=== PATIENT | male | born 1950 | race Caucasian/White ===

== ENCOUNTER 2019-05-08 07:00 | Inpatient (IN) | payer SELFPAY ==
[~2019-05-08] VITALS: Ht 182.9 cm; Wt 68.5 kg
--- NOTE | 2019-05-08 07:18 | NUR ---
pt to room from [facility], changed into gown & upright on gurney awake & comfortable, responds approp to staff, NAD, comfort measures provided, call light within reach. ERP at BS
[2019-05-08] MEDS ORDERED: ASPI-496 PO (07:23)
[2019-05-08] MEDS ORDERED: ASPIRIN 325 MG TABLET PO ONE (07:30)
[2019-05-08 07:48] LABS: BASOPHILS # (AUTO) 0.03 x10^3/uL (0-0.1); BASOPHILS % (AUTO) 1 % (0-1); EOSINOPHILS # (AUTO) 0.16 x10^3/uL (0-0.4); EOSINOPHILS % (AUTO) 3 % (1-7); LYMPHOCYTES # (AUTO) 2.33 x10^3/uL (1-3.4); LYMPHOCYTES % (AUTO) 36 % (22-44); MD NO; MEAN CORPUSCULAR HEMOGLOBIN 32.1 pg (27.5-34.5); MEAN CORPUSCULAR HGB CONC 33.3 g/dL (33.2-36.2); MEAN CORPUSCULAR VOLUME 96.4 fL (81-97); MEAN PLATELET VOLUME 9.7 fL (7.4-10.4); MONOCYTES # (AUTO) 0.66 x10^3/uL (0.2-0.8); MONOCYTES % (AUTO) 10 % (2-9); NEUTROPHILS # (AUTO) 3.28 x10^3/uL (1.8-6.8); NEUTROPHILS % (AUTO) 51 % (42-75); PLATELET COUNT 191 x10^3/uL (130-400); RED BLOOD COUNT 5.28 x10^6/uL (4.38-5.82); RED CELL DISTRIBUTION WIDTH 13.2 % (9.4-14.8)
--- NOTE | 2019-05-08 07:59 | NUR ---
pt remains upright on gurney awake & comfortable, responds approp to staff, NAD, comfort measures provided, call light within reach.
[2019-05-08 08:02] LABS: ALBUMIN 4.2 g/dL (3.4-5.0); ANION GAP 6 mmol/L (5-15); CALCIUM 9.1 mg/dL (8.5-10.1); CHLORIDE 110 mmol/L (98-107); CREATININE 1.07 mg/dL (0.7-1.3)
[2019-05-08 08:05] LABS: TROPONIN I < 0.015 ng/mL (0.000-0.045)
[2019-05-08 08:06] LABS: AMPHETAMINE SCREEN, URINE Negative (Negative); CANNABINOID SCREEN, URINE Positive (Negative); COCAINE SCREEN, URINE Negative (Negative); METHADONE SCREEN, URINE Negative (Negative)
[2019-05-08 08:07] LABS: BARBITURATE SCREEN, URINE Negative (Negative); BENZODIAZEPINE SCREEN, URINE Negative (Negative); OPIATE SCREEN, URINE Negative (Negative)
--- NOTE | 2019-05-08 08:16 | NUR ---
pt to CT
[2019-05-08] MEDS ORDERED: ASPIRIN 325 MG TABLET ONE (08:18)
[2019-05-08] MEDS ORDERED: OMNIPAQUE 350 MG/ML, 100ML BOTTLE ONE (08:49)
--- NOTE | 2019-05-08 09:03 | NUR ---
pt upright on gurney awake & comfortable, responds approp to staff, NAD, comfort measures provided, call light within reach.
--- NOTE | 2019-05-08 09:49 | NUR ---
Pt to be admitted to [facility], room 488-2. Report called to Inez.
--- NOTE | 2019-05-08 09:56 | NUR ---
pt remains upright on gurney awake & comfortable, responds approp to staff, NAD, comfort measures provided, call light within reach.
[2019-05-08 10:23] VITALS: BP 156/87
[2019-05-08] MEDS ORDERED: ONDANSETRON ODT 4 MG PO PRN (12:00)
[2019-05-08] MEDS ORDERED: TRAZODONE 50MG TABLET PO PRN (12:00)
[2019-05-08] MEDS ORDERED: DOCUSATE 100 MG CAPSULE PO PRN (12:00)
[2019-05-08] MEDS ORDERED: ONDANSETRON 2MG/ML, 2ML IVPush PRN (12:00)
[2019-05-08] MEDS ORDERED: hydrALAzine 20 MG/ML, 1ML IVPush PRN (12:00)
[2019-05-08] MEDS ORDERED: ACETAMINOPHEN 325 MG TABLET PO PRN (12:00)
[2019-05-08] MEDS ORDERED: BISACODYL 10 MG SUPP PR PRN (12:00)
[2019-05-08 12:37] LABS: FREE T4 (FREE THYROXINE) 1.13 ng/dL (0.76-1.46); THYROID STIMULATING HORMONE 2.76 mIU/L (0.358-3.740)
[2019-05-08 12:56] LABS: HEMOGLOBIN A1C 5.8 % (4.2-6.3)
[2019-05-08 13:32] VITALS: BP 122/76
[2019-05-08] MEDS: ENOXAPARIN 40 MG/0.4 ML SQ SCH (16:01)
[2019-05-08] MEDS: CAPTOPRIL 12.5 MG TABLET PO SCH ×2 (16:01→23:26)
[2019-05-08 16:15] LABS: MICROSCOPIC NOT IND
[2019-05-08 16:20] LABS: CULTURE INDICATED? NO
[2019-05-08 19:07] VITALS: BP 108/70
[2019-05-08] MEDS: ATORVASTATIN 40 MG TABLET PO SCH (21:06)
[2019-05-08] MEDS: FAMOTIDINE 20 MG TABLET PO SCH (21:06)
[2019-05-08 23:25] VITALS: BP 142/90
[2019-05-09 02:16] VITALS: BP 108/69
[2019-05-09] MEDS: ASPIRIN 325 MG TABLET EC PO SCH (06:08)
[2019-05-09 06:54] LABS: BASOPHILS # (AUTO) 0.04 x10^3/uL (0-0.1); BASOPHILS % (AUTO) 1 % (0-1); EOSINOPHILS # (AUTO) 0.13 x10^3/uL (0-0.4); EOSINOPHILS % (AUTO) 2 % (1-7); LYMPHOCYTES # (AUTO) 1.83 x10^3/uL (1-3.4); LYMPHOCYTES % (AUTO) 29 % (22-44); MD NO; MEAN CORPUSCULAR HEMOGLOBIN 31.8 pg (27.5-34.5); MEAN CORPUSCULAR HGB CONC 33.1 g/dL (33.2-36.2); MEAN CORPUSCULAR VOLUME 96.1 fL (81-97); MEAN PLATELET VOLUME 10.2 fL (7.4-10.4); MONOCYTES % (AUTO) 11 % (2-9); NEUTROPHILS # (AUTO) 3.57 x10^3/uL (1.8-6.8); NEUTROPHILS % (AUTO) 57 % (42-75); PLATELET COUNT 190 x10^3/uL (130-400); RED BLOOD COUNT 5.29 x10^6/uL (4.38-5.82); RED CELL DISTRIBUTION WIDTH 12.8 % (9.4-14.8)
[2019-05-09 07:08] LABS: ANION GAP 6 mmol/L (5-15); CHLORIDE 110 mmol/L (98-107); CHOLESTEROL, TOTAL 230 mg/dL (140-239); TRIGLYCERIDES 118 mg/dL (50-200); VLDL CHOLESTEROL 24 mg/dL (0-25)
[2019-05-09 07:09] LABS: HDL CHOL % 20 % (26-37); HDL CHOLESTEROL (DIRECT) 46 mg/dL (40-60); LDL CHOLESTEROL,CALCULATED 160 mg/dL (54-169); LDL/HDL RATIO 3.5 (0.5-3.0)
[2019-05-09 08:02] VITALS: BP 135/79
[2019-05-09] MEDS: CAPTOPRIL 12.5 MG TABLET PO SCH ×2 (08:46→16:00)
[2019-05-09] MEDS: FAMOTIDINE 20 MG TABLET PO SCH ×2 (08:46→20:22)
[2019-05-09] MEDS ORDERED: GADOBUTROL 7.5 MMOL/7.5 ML PFS ONE (09:31)
[2019-05-09 13:38] VITALS: BP 127/71
[2019-05-09] MEDS: ENOXAPARIN 40 MG/0.4 ML SQ SCH (16:47)
[2019-05-09] MEDS: ATORVASTATIN 40 MG TABLET PO SCH (20:22)
[2019-05-09 20:27] VITALS: BP 106/66
[2019-05-10 03:14] VITALS: BP 126/74
[2019-05-10 05:17] LABS: BASOPHILS # (AUTO) 0.05 x10^3/uL (0-0.1); BASOPHILS % (AUTO) 1 % (0-1); EOSINOPHILS # (AUTO) 0.17 x10^3/uL (0-0.4); EOSINOPHILS % (AUTO) 3 % (1-7); LYMPHOCYTES # (AUTO) 2.25 x10^3/uL (1-3.4); LYMPHOCYTES % (AUTO) 32 % (22-44); MD NO; MEAN CORPUSCULAR HEMOGLOBIN 32.4 pg (27.5-34.5); MEAN CORPUSCULAR HGB CONC 33.2 g/dL (33.2-36.2); MEAN CORPUSCULAR VOLUME 97.7 fL (81-97); MEAN PLATELET VOLUME 10.5 fL (7.4-10.4); MONOCYTES # (AUTO) 0.94 x10^3/uL (0.2-0.8); MONOCYTES % (AUTO) 14 % (2-9); NEUTROPHILS # (AUTO) 3.57 x10^3/uL (1.8-6.8); NEUTROPHILS % (AUTO) 51 % (42-75); PLATELET COUNT 198 x10^3/uL (130-400); RED BLOOD COUNT 5.34 x10^6/uL (4.38-5.82); RED CELL DISTRIBUTION WIDTH 13.3 % (9.4-14.8)
[2019-05-10 05:27] LABS: ANION GAP 5 mmol/L (5-15); CALCIUM 9.3 mg/dL (8.5-10.1); CHLORIDE 109 mmol/L (98-107)
[2019-05-10 05:28] LABS: CREATININE 1.21 mg/dL (0.7-1.3)
[2019-05-10] MEDS: ASPIRIN 325 MG TABLET EC PO SCH (06:03)
[2019-05-10 07:00] VITALS: BP 105/68
[2019-05-10] MEDS: FAMOTIDINE 20 MG TABLET PO SCH (07:59)
[2019-05-10 14:00] VITALS: BP 124/76
[2019-05-10] MEDS: ENOXAPARIN 40 MG/0.4 ML SQ SCH (16:00)
[2019-05-10] MEDS ORDERED: ASPI-650 PO (16:29)
[2019-05-10] MEDS ORDERED: ATOR40TA78 PO (16:29)
== END 2019-05-10 18:50 | disposition home or self-care (01) | DRG 65 ==
LOC: ED 08:19 → EDIP 09:22 → INTOOBSV 09:22 → OBSVTOIN 09:46 → 4EST 10:21
PROVIDERS: ADMIT Internal Medicine; ATTEND Internal Medicine
DX: I63.512 Cerebral infarction due to unspecified occlusion or stenosis of left middle cerebral artery (principal); G81.91 Hemiplegia, unspecified affecting right dominant side; R13.10 Dysphagia, unspecified; R47.01 Aphasia; R29.810 Facial weakness; R47.81 Slurred speech; Z79.82 Long term (current) use of aspirin; Z85.51 Personal history of malignant neoplasm of bladder
CPT/HCPCS: 36415; 70450; 70496; 70498; 70553; 80048; 80061; 80307; 81003; 82040; 83036; 84439; 84443; 84484; 85025; 93005; 93306; A9585; G0378; J1650; Q9967; 92523-GN